=== PATIENT | male | born 1945 | race Asian ===

== ENCOUNTER 2018-10-31 23:29 | Emergency (ER) | payer MEDICARE, OTHER ==
[~2018-10-31] VITALS: Ht 162.6 cm; Wt 59.0 kg
[2018-10-31] MEDS ORDERED: METHYLPREDNISOLONE SOD SUCC 125 MG/2 ML VIAL IV STA (23:54)
[2018-10-31] MEDS ORDERED: ALBUTEROL (0.083%) 2.5MG/3ML NEB HHN STA (23:54)
[2018-10-31] MEDS ORDERED: IPRATROPIUM BROMIDE (0.02%) 0.5MG/2.5ML NEB HHN STA (23:54)
[2018-11-01] MEDS ORDERED: MAGNESIUM 2 G PREMIX 50 ML IV ONE
[2018-11-01 00:37] LABS: BASOPHILS % 0.8 % (0.0-2.0); EOSINOPHILS % 8.1 % (0.0-5.0); HEMATOCRIT. 42.3 % (42.0-52.0); HEMOGLOBIN. 14.6 g/dL (14.0-18.0); LYMPHOCYTES % 26.7 % (20.0-50.0); MEAN CORPUSCULAR HEMOGLOBIN 31.5 pg (28.0-32.0); MEAN CORPUSCULAR VOLUME 91.5 fL (80.0-94.0); MEAN PLATELET VOLUME 7.2 fl (7.4-10.4); MONOCYTES % 10.6 % (2.0-8.0); NEUTROPHILS % 53.8 % (40.0-76.0); PLATELET 305 x1000/uL (130-400); RED BLOOD CELL COUNT 4.62 mill/uL (4.7-6.1); RED CELL DISTRIBUTION WIDTH 13.1 % (11.6-14.6)
[2018-11-01 00:41] LABS: CHLORIDE 105 mEq/L (98-107)
[2018-11-01 04:04] VITALS: BP 154/66
== END 2018-11-01 04:11 | disposition home or self-care (01) ==
LOC: ER 23:29
DX: J45.909 Unspecified asthma, uncomplicated (principal); I10 Essential (primary) hypertension
CPT/HCPCS: 36415; 71045; 80053; 83605; 83880; 84484; 85025; 87040; 87086; 87804; 93005; 94640; 96365; 96366; 96375; 99284; J2930; J3475; J7611